=== PATIENT | female | born 2000 | race African-American/Black ===

== ENCOUNTER 2025-05-23 19:00 | Emergency (ER) | payer MEDICAID, SELFPAY ==
--- NOTE | ~2025-05-23 | XR_ITS ---
CLINICAL HISTORY: pain, swelling 3 view right ankle Comparison: None provided Findings: No acute fractures or dislocations. Soft tissue swelling. No ankle effusion. No radiopaque foreign body. IMPRESSION: No acute osseous findings. This document has been electronically signed by: Nacho Jimenez MD on 05/23/2025 20:17:00
[2025-05-23 19:06] VITALS: BP 122/78; PULSE 96; RESP 16; TEMP 36.1; O2SAT 97; BMI 36.7
--- NOTE | 2025-05-23 19:07 | ED.GENADULT ---
HPI - General Adult General Chief complaint: Extremity Injury, Lower Stated complaint: ankle sprain a week ago still bothering/ has boot Time Seen by Provider: 05/23/25 19:13 Source: patient and family Limitations: no limitations History of Present Illness HPI narrative: 24-year-old female presents to the emergency department for right ankle pain and swelling. Patient reports that she sustained an injury on May 09 while jumping on a trampoline. She reports twisting her ankle at that time. She was seen at [facility] where she had an x-ray, diagnosed with a sprain and placed in a walking boot. Patient states that despite using a walking boot and weight-bearing as tolerated, she continues to have pain. She has not taken any medication today for this. She has been ambulating on it while using the walking boot. Patient states that when she removes the, symptoms are worsened. She denies any repeat injury. She has not had any follow up. Related Data Allergies Allergy/AdvReac Type Severity Reaction Status Date / Time amoxicillin Allergy Vomiting Verified 05/23/25 19:08 Review of Systems Review of Systems: Yes all other systems are reviewed and are negative Musculoskeletal: Musculoskeletal: Reports abnormal gait, Denies deformity and Denies stiffness Neurologic: Reports abnormal gait PMFSH Social History Social History Advance Directives: No Advance Directives Information Provided: No Do you have a plan to hurt others: No Plan Physical Exam ED Vital Signs: Vital Signs - 24 hr 05/23/25 19:06 Temperature 97.0 F Pulse Rate 96 Respiratory Rate 16 Blood Pressure 122/78 Pulse Oximetry 97 Oxygen Delivery Method Room Air BMI result Body Mass Index 36.7 Const General: cooperative, alert and awake Extrem Other: Soft tissue swelling surrounds the right lateral malleolus. There is mild diffuse tenderness in this region. No proximal tibial tenderness. DP pulses are +1 and equal bilaterally. Capillary refills less than 2 seconds. No 5th metatarsal tenderness Course Course Course Narrative: Preliminary x-ray findings do not reveal any acute fracture. Patient has for walking boot with her that she will continue. She confirms that she has anti-inflammatory medication at home. Patient is requesting a work no. She expresses understanding of all discharge instructions and has no further questions at this time. A new orthopedic referral per the request of the patient has been provided. Medical Decision Making Medical Decision Making MDM Narrative: 24-year-old female with right ankle sprain, continued pain and swelling despite conservative treatment. Patient agreeable to repeat x-ray. In addition I have reviewed the records from [facility], confirms that the patient sustained an injury on May 09, was seen in the emergency department at that time on May 12 where x-ray was negative for any acute process. Patient was provided with a orthopedic referral. Patient states she did not review her discharge paperwork and states that she did not make contact with the orthopedic referral. Differential Diagnosis Differential Diagnoses: The differential diagnosis associated with the presentation includes Fracture Dislocation Sprain Contusion Independent Interpretation I performed an independent interpretation of an: Plain X-Ray (No fracture) Prescription Management I considered prescription management with: Pain Medication Discharge Plan Discharge Clinical Impression: Ankle sprain and strain Patient Disposition: Home, Self-Care Instructions: Ankle Sprain (ED) Additional Instructions: Continue to rest, ice, elevate. Walking boot for comfort. Weightbear as tolerated. Continue Tylenol or ibuprofen for pain. Follow up with orthopedic referral. Call tomorrow to schedule follow up appointment. Follow-up with your primary care provider. Call this week to schedule a follow-up appointment. Return to the emergency department if you have any worsening of symptoms, or any concerns. Get well soon! Referrals: Velia Olvera MD [Physician, Hand Surgery] Referral Note: right ankle sprain, continued pain, in walking boot Stand Alone Forms: Work/School Release Print Language: Romansh
[2025-05-23 19:44] VITALS: BP 122/78; PULSE 96; RESP 16; TEMP 36.1; O2SAT 97
== END 2025-05-23 19:45 | disposition home or self-care (01) ==
PROVIDERS: Emergency Provider Emergency Medicine
DX: S93.401A Sprain of unspecified ligament of right ankle, initial encounter (principal); M25.571 Pain in right ankle and joints of right foot; X58.XXXA Exposure to other specified factors, initial encounter; Y93.9 Activity, unspecified; Y92.9 Unspecified place or not applicable; Y99.8 Other external cause status
CPT/HCPCS: 73610; 99282; 99283

== ENCOUNTER → 2025-05-23 19:13 | Outpatient (BNV) | payer SELFPAY | PROVIDERS: Emergency Provider Emergency Medicine; Visit Provider Radiology Diagnostic Radiology | DX: M25.571 Pain in right ankle and joints of right foot (principal); R22.41 Localized swelling, mass and lump, right lower limb | CPT/HCPCS: 73610 ==

== ENCOUNTER 2025-06-23 13:11 | Outpatient (AMB) | payer OTHER, SELFPAY ==
[2025-06-23 13:13] VITALS: BMI 36.7
--- NOTE | 2025-06-23 13:13 | A.OFFVIS_ITS ---
Vital Signs 06/23/25 13:13 Height 5 ft 1 in Weight 194 lb BMI 36.7 Intake Visit Reasons: FC - RT ankle sprain DOI: 05/09/25 Intake Note: Reymundo is a 24 year old female who presents today for an ER follow up of right ankle sprain, DOI: 05/09/25. Patient initially was seen at [facility] after she twisted her right ankle while jumping on a trampoline, she was di agnosed with a sprain and placed in a walking boot. She presented to [facility] ER due to her pain and was referred to orthopedics. Patient reports ongoing constant pain and swelling. Finds little relief with Tylenol. No numbness or tingling. Patient has been out of work since her injury. Allergies amoxicillin Allergy (Verified 06/23/25 13:17) Vomiting Medication List - Last Reconciled 06/23/25 by Melani Pace PA-C No Known Home Meds HPI HPI FC - RT ankle sprain DOI: 05/09/25: Details: 24-year-old female presents to the office an injury she sustained to the right ankle 05/09/2025. She states she was at a trampoline park when she twisted the ankle. She was seen in the emergency department at [facility] where x-rays were obtained and she was given a tall walking boot and referred for an orthopedic follow up. The patient states since the injury she has less pain but she does notice some limited motion and stiffness. She also experiences intermittent swelling especially toward the end of the day. [facility] Social History (Updated 06/23/25 @ 13:17 by MAXIME Ceballos) Patient Tobacco Use Status: Never used Tobacco Current occupational status: employed Current occupation: Pharmacy Review of Systems Const All systems reviewed & are unremarkable except as noted in HPI and below Physical Exam Vital Signs: BMI result Body Mass Index 36.7 Const General: cooperative and no acute distress Orientation/consciousness: patient oriented x3 Resp Effort & Inspection: normal respiratory effort and able to speak in complete sentences Cardio Peripheral pulses: Peripheral pulses 2+ throughout Neuro General: patient oriented x3 Extrem Other: Right ankle is normal to inspection with some mild soft tissue swell the lateral malleolus with tenderness to palpation from the posterior aspect of the ankle along the peroneal tendon. She has limited motion with plantar and dorsiflexion along with weakness compared to contralateral side. Neurovascularly intact. Results Reviewed Results Reviewed: X-rays of the right ankle obtained in the emergency department on 05/23/2025 are negative for any acute abnormalities. Ankle mortise intact. Assessment & Plan Assessment & Plan (1) Right ankle sprain: Code(s): S93.401A - Sprain of unspecified ligament of right ankle, initial encounter Category: Medical Plan: She was fit for a lace-up ankle brace which she will transition to. She will wean out of the boot. An order for physical therapy has been placed for range of motion, gentle strengthening proprioceptive training. She will gradually increase activities as tolerated. I did recommend anti-inflammatories icing and elevating for management of swelling. She will remain out of work for another 2 weeks and then she can return without restrictions. Orders: Orders PT Evaluation and Treatment Today S93.401A - Sprain of unspecified ligament of right ankle, initial encounter Coding Level of Care Code New Pt Level 3 (96261) Complex EM visit Add On G2211 Diagnoses Right ankle sprain S93.401A
--- OUTSIDE RECORDS SUMMARY | 2025-06-23 13:43 | XMS_ITS | Encounter Summary ---
Author Organization [facility] Address [address] [place] [address] Phone Care Team Providers Care Lasting Machine Operator Bed Name Role Phone Key Valentine MD Primary Care Provider Encounter Details Date Type Department Care Team (Late st Contact Info) Description 05/03/2015 Documentation [facility] [address] [place] [address] Family Medicine, Physician [address] [place], [place] [id number] Social History Tobacco Use Types Packs/Day Years Used Date Smoking Tobacco: Never Assessed Comments Unknown Sex and Gender Information Value Date Recorded Sex Assigned at Not on file Legal Sex Female 5:14 PM EDT Gender Identity Not on file Sexual Orientation Not on file documented as of this encounter Plan of Treatment Not on file documented as of this encounter Visit Diagnoses Not on filedocumented in this encounter Care Teams Lasting Machine Operator Bed Relationship Specialty Start Date End Date Key Valentine MD [address] [place] [id number] PCP - General 06/21/17 12/26/22 documented as of this encounter
--- OUTSIDE RECORDS SUMMARY | 2025-06-23 13:43 | XMS_ITS | Clinical Summary ---
Author Organization [facility] Address [address] [place] [address] Phone Care Team Providers Care Fashion Buying Internship Name Role Phone Physician, No Pcp Primary Care Provider Unavaila ble Allergies Active Allergy Reactions Criticality Noted Date Comments Amoxicillin GI intolerance 05/12/2025 Encounters Date Type Department Care Team Description 05/12/2025 2:04 PM EDT - 05/12/2025 3:20 PM EDT Emergency [facility] Emergency [address] [place] [address] Sprain of right ankle, initial encounter (Primary Dx) Discharge Disposition: Home or Self Care from Last 3 Months Medical History Medical History Date Comments Known health problems: none Social History Tobacco Use Types Packs/Day Years Used Date Smoking Tobacco: Never Assessed Comments Unknown Sex and Gender Information Value Date Recorded Sex Assigned at Not on file Legal Sex Female 9:32 AM EST Gender Identity Not on file Sexual Orientation Not on file Obstetrics History Last Filed Vital Signs Vital Sign Reading Time Taken Comments Blood Pressure 120/79 05/12/2025 1:41 PM EDT Pulse 107 05/12/2025 1:41 PM EDT Temperature 37.5 C (99.5 F) 05/12/2025 1:41 PM EDT Respiratory Rate 18 05/12/2025 1:41 PM EDT Oxygen Saturation 95% 05/12/2025 1:41 PM EDT Inhaled Oxygen Concentration - - Weight 88 kg (194 lb) 05/12/2025 1:41 PM EDT Height 154.9 cm (5' 1 ) 05/12/2025 1:41 PM EDT Body Mass Index 36.66 05/12/2025 1:41 PM EDT Plan of Treatment Upcoming Encounters Date Type Department Care Team (Late st Contact Info) Description 07/08/2025 3:00 PM EDT Consult Orthopedic Surgery - [place] [address] [facility] [address] [place] [id number] Cassius Allen, DPM [address] [facility] [address] [place] [address] Health Maintenance Due Date Last Done Comments Diabetes: Annual GFR (Glomerular Filtration Rate) 1998 Diabetes: Annual Foot Exam 2008 Diabetes: Annual Retina Eye Exam 2008 Cervical Cancer Screening: Pap Smear 2019 DTaP,Tdap,and Td Vaccines (7 - Td or Tdap) 04/20/2021 04/20/2011, 01/13/2003, 08/21/2000, Additional history exists COVID-19 Vaccine () 07/12/2024 03/26/2022, 11/29/2021 Depression Screening 11/11/2024 Cholesterol Screening (Lipid Panel) 05/13/2025 Diabetes: Annual Urine Albumin-Creatinine Ratio (uACR) 05/13/2025 Diabetes: Blood Sugar Control Test (HGBA1C) 05/13/2025 HIV Screening 05/13/2025 Hepatitis C Screening 05/13/2025 Social Influencers of Health Screening 05/13/2025 Influenza Vaccine (#1) 2025 09/18/2007 Hepatitis B Vaccines Completed 07/12/1999, 01/10/1999, 1998 HIB Vaccines Completed 08/21/2000, 11/1998, 03/17/1999, Additional history exists Pneumococcal Vaccine: Pediatrics (0 to 5 Years) and At-Risk Patients (6 to 49 Years) Completed 01/01/2001, 10/02/2000, 08/21/2000 IPV Vaccines Completed 01/13/2003, 08/11, 03/17/1999, Additional history exists MMR Vaccines Completed 09/04/2006, 03/2003, 10/16/1999 Varicella Vaccines Completed 11/24/2008, 11/29/2000 HPV Vaccines Completed 02/03/2010, 09/12, 08/03/2009 Hepatitis A Vaccines Completed 09/27/2016, 04/20/20 11 Meningococcal ACWY Vaccine Completed 09/27/2016, Meningococcal B Vaccine Completed 08/25/2019, 02/18 RSV Immunization Patients Under 20 months Aged Out No longer eligible based on patient's age to complete this topic Procedures Procedure Name Priority Date/Time Associated Diagnosis Comments XR ANKLE 3+ VIEWS RIGHT STAT 05/12/2025 1:57 PM EDT from Last 3 Months Results * XR Ankle 3+ Views Right (05/12/2025 1:57 PM EDT) Anatomical Region Laterality Modality Lower Extremities, Ankle Right Radiogr aphic Imaging 05/12/2025 2:36 PM EDT Impressions 05/12/2025 2:36 PM EDT FINDINGS/IMPRESSION: Three views of the ankle demonstrate no acute fracture. Normal alignment. Soft tissue swelling. -------- FINAL REPORT -------- Dictated By: Kady Moreno Dictated Date: 05/12/2025 14:36 ET Assigned Physician: Kady Moreno Reviewed and Electronically Signed By: Kady Moreno Signed Date: 05/12/2025 14:36 ET Workstation ID: [id number] Transcribed By: Self Edit Transcribed Date: 05/12/2025 14:36 ET Narrative 05/12/2025 2:36 PM EDT XR ANKLE 3+ VIEWS RIGHT INDICATION: pain TECHNIQUE: XR ANKLE 3+ VIEWS RIGHT COMPARISON: No priors available. Procedure Note Kady Moreno MD - 05/12/2025 XR ANKLE 3+ VIEWS RIGHT INDICATION: pain TECHNIQUE: XR ANKLE 3+ VIEWS RIGHT COMPARISON: No priors available. IMPRESSION: FINDINGS/IMPRESSION: Three views of the ankle demonstrate no acutefracture. Normal alignment. Soft tissue swelling. -------- FINAL REPORT -------- Dictated By: Kady Moreno Dictated Date: 05/12/2025 14:36 ET Assigned Physician: Kady Moreno Reviewed and Electronically Signed By: Kady Moreno Signed Date: 05/12/2025 14:36 ET Workstation ID: [id number] Transcribed By: Self Edit Transcribed Date: 05/12/2025 14:36 ET us Ambrosio Alegria MD IMG XR PROCEDURES Final Result from Last 3 Months Insurance MEDICAID - [place] Care Teams Fashion Buying Internship Relationship Specialty Start Date End Date Physician, No Pcp PCP - General 05/12/25
== END 2025-06-23 13:52 | disposition home or self-care (01) ==
LOC: HO.HOS 13:11
PROVIDERS: Visit Provider Physician Assistant
DX: S93.401A Sprain of unspecified ligament of right ankle, initial encounter (principal)
CPT/HCPCS: 99203

== ENCOUNTER → 2025-06-23 13:11 | Outpatient (BNVA) | payer OTHER, SELFPAY | PROVIDERS: Visit Provider Physician Assistant | DX: M25.571 Pain in right ankle and joints of right foot (principal); S93.401A Sprain of unspecified ligament of right ankle, initial encounter | CPT/HCPCS: 99202 ==

== ENCOUNTER 2025-07-29 23:00 | Emergency (ER) | payer OTHER, SELFPAY ==
--- NOTE | ~2025-07-29 | CT_ITS ---
CLINICAL HISTORY: RUQ pain CT abdomen and pelvis with contrast Comparison: None provided Findings: The lung bases are clear. The gallbladder and solid organs are within normal limits. No renal stones. No bowel obstruction, pneumoperitoneum, or pneumatosis. Pelvic contents unremarkable. Normal appendix. No acute fracture. IMPRESSION: No acute findings. This document has been electronically signed by: Malinda Sykes MD on 07/30/2025 06:17:51
[2025-07-29 23:03] VITALS: BP 123/64; PULSE 64; RESP 16; TEMP 37.1; O2SAT 96; BMI 36.6
[2025-07-29 23:22] LABS: Hematocrit 40.9 % (37.0-47.0); Hemoglobin 14.1 g/dl (12.0-16.0); Imm Gran Abs Auto 0.06 X10*3/uL (0.00-0.03); Imm Gran Pct Auto 0.4 % (0.0-0.4); MANUAL DIFF FLAG SCAN; Mean Corpuscular HGB Conc 34.5 g/dl (31.0-35.0); Mean Corpuscular Hemoglobin 28.1 pg (27.0-33.0); Mean Corpuscular Volume 81.6 fL (80.0-98.0); NRBC Abs Auto 0.000 X10*3/uL (0.0-0.012); NRBC Pct Auto 0.0 /100WBC (0.0-0.2); Platelet Count 506 X10*3/uL (160-400); Red Blood Count 5.01 X10*6/uL (4.20-5.50); SCAN SMEAR FLAG 1; White Blood Count 14.9 X10*3/uL (4.8-10.8)
--- OUTSIDE RECORDS SUMMARY | 2025-07-29 23:25 | XMS_ITS | Clinical Summary ---
Author Organization [facility] Address [address] [place] [address] Phone Care Team Providers Care Broomcorn Thresher Name Role Phone Unavailable Primary Care Provider Unavailabl e Allergies No known active allergies Medications norgestimate-eth inyl estradiol 0.25-35 MG-MCG per tabletIndication s:Polycystic ovarian syndrome Take 1 tablet by mouth daily. 84 tablet 3 12/11/2017 Active Active Problems Problem Noted Date Diagnosed Date Refused influenza vaccine 01/08/2019 Overview (09/22/2019): Declined 01/08/19 Declined 09/29 Assessment & Plan (01/08/2019 4:11 PM EST): Discussed & info given on how deadly 2016 flu season was. Family and /or patient still refused vaccine today Family will return for nurse visit if wishing vaccine Polycystic ovarian syndrome 12/12/2017 Assessment & Plan (12/26/2018 5:58 PM EST): Mom wants pt to see endo so she no longer has to take her pills. I explained that the OC pills are the treatment that endocrine recommends. They also recommended Metformin. Mom reports that Sheinaly is not good at taking her medication. Mom did not seem aware that Sheinaly has been to endocrine. I discussed scheduling next PE with Dr Valentine for [facility] to discuss transfer to adult providers. Talked about import of learning to take medication regularly - she can do it when she brushes her teeth. Assessment & Plan (12/12/2017 10:04 AM EST): Continue OCPs. Mom would like to have her start seeing a sea kayaking guide - she will arrange. BMI 40.0-44.9, adult 12/12/2017 Assessment & Plan (12/12/2017 10:05 AM EST): Discussed healthy eating and exercising. Suggested walking, dancing to 10 songs. Pt interested in doing Viral videos - encouraged her to do so. Acanthosis nigricans, acquired 12/12/2017 Assessment & Plan (12/12/2017 10:07 AM EST): Discussed with pt. Am concerned about her weight and risk for diabetes. Will refer to Adult Endocrinology to follow as she gets older. Resolved Problems Problem Noted Date Diagnosed Date Resolved Date Breast lump on right side at 6 o'clock position 12/26/2018 02/18/2019 Overview (12/26/2018): Positive family history of breast CA in aunt on dads side and great aunt on moms side - both in their 40's. Assessment & Plan (12/26/2018 6:02 PM EST): Positive family history of breast CA in aunt on dads side and great aunt on moms side - both in their 40's. Right breat with a firm small mass at about 6 oclock. I gave mom numbers for branch specialist to call for appt for ongoing care. On review of chart mom told PP that she would make appt with branch specialist a year ago. I also recommended that Sheinaly schedule PE with DR Valentine for [facility] as she is due and needs to talk about transfering to adult providers/specialists. Immunizations Immunization Administration Dates Next Due DTP 03/17/1999,01/10/1999 DTaP 5 01/13/2003,08/21/2000,07/12/1999 HPV, Quadrivalent 02/03/2010,09/30/2009,08/03/20 09 Hep A, ped/adol 09/27/2016,04/20/2011 Hep B, ped/adol 07/12/1999,01/10/1999,1998 Hib (PRP-T) 08/21/2000, 9,03/17/1999,03/02/1 999 IPV 01/13/2003, 0,03/17/1999, 999 Influenza, injectable, trivalent 09/18/2007 MMR 09/04/2006,01/13/2003,10/16/1999 Meningococcal B Trumenba 08/25/2019,02/18/2019 Meningococcal Conj (Menactra) MCV4P 09/27/2016,0 04/20/2011 Pneumococcal Conjugate 01/01/2001,10/02/2000,09/2000 Tdap 04/20/2011 Varicella 11/24/2008,11/29/2000 Family History Medical History Relation Name Comments Asthma Father yamileth Hypertension Father yamileth Kidney failure Father yamileth Sleep apnea Father yamileth Arthritis Maternal Grandfather Emphysema Maternal Grandfather Depression Maternal Grandmother Diabetes Maternal Grandmother Migraines Maternal Grandmother Hearing loss Mother Sujeily Asthma Sister 1 Asthma Sister 2 Relation Name Status Comments Father yamileth Alive Father: Hyperte nsion asthma Maternal Grandfather Alive Maternal Grandmother Alive Materna l grandmother: Depression, Hearing loss, diabetes, migraines Mother Sujeily Alive Mother: Hearing loss Other 1 grandfather: As thma Other 2 No family histo ry of *Heart Disease, No family history of *Sudden /NH under 55, No family history of *Thrombophilia, No family history of *Dental caries, No family history of *CVA/Stroke Paternal Grandmother Alive Paterna l aunt: Hypertension Sister 1 Alive Sister: Asthma, Asthma Sister 2 Alive Sister: Asthma, Asthma Social History Tobacco Use Types Packs/Day Years Used Date Smoking Tobacco: Never Smokeless Tobacco: Never Tobacco Cessation:Counseling Given: Yes Comments:Never smoker Alcohol Use Standard Drinks/Week Comments Never 0 (1 standard drink = 0.6 oz pur e alcohol) Hunger/Food Answer Date Recorded No 08/06/2020 Stable Housing Answer Date Recorded Yes 08/06/2020 Transportation Concerns Answer Date Rec orded No 08/06/2020 Hazards in Home Answer Date Recorded No 09/24/2020 Financing Utilities Answer Date Recorde d No 09/24/2020 Safety at Home Answer Date Recorded No 09/24/2020 Outside Support Answer Date Recorded No 09/24/2020 Understanding Health Concerns Answer Da te Recorded No 09/24/2020 Financing Health Concerns Answer Date R ecorded No 09/24/2020 Missing School or Work Answer Date Logan rded No 09/24/2020 Comments No Sex and Gender Information Value Date Recorded Sex Assigned at Not on file Legal Sex Female 5:14 PM EDT Gender Identity Not on file Sexual Orientation Not on file Last Filed Vital Signs Vital Sign Reading Time Taken Comments Blood Pressure 95/63 02/18/2019 1:03 PM EDT Pulse 107 02/18/2019 1:03 PM EDT Temperature 36.7 C (98 F) 01/08/2019 3:54 PM EST Respiratory Rate - - Oxygen Saturation - - Inhaled Oxygen Concentration - - Weight 101 kg (222 lb 6.4 oz) 02/18/2019 1:03 PM EDT Height 154.9 cm (5' 1 ) 02/18/2019 1:03 PM EDT Body Mass Index 42.02 02/18/2019 1:03 PM EDT Plan of Treatment Health Maintenance Due Date Last Done Comments DTaP,Tdap,and Td Vaccines (7 - Td or Tdap) 04/20/2021 04/20/2011, 01/13/2003, 08/21/2000, Additional history exists Influenza Vaccines (#1) 2025 09/18/2007 COVID-19 Vaccine (2023-2 5 season) 2025 Hepatitis B Vaccines Completed 07/12/1999, 01/10/1999, 1998 HIB Vaccines Completed 08/21/2000, 11/1998, 03/17/1999, Additional history exists Pneumococcal Vaccine Completed 01/01/2001, 10/02/2000, 08/21/2000 IPV Vaccines Completed 01/13/2003, 08/11, 03/17/1999, Additional history exists MMR Vaccines Completed 09/04/2006, 03/2003, 10/16/1999 Varicella Vaccines Completed 11/24/2008, 11/29/2000 HPV Vaccines Completed 02/03/2010, 09/12, 08/03/2009 Hepatitis A Vaccines Completed 09/27/2016, 04/20/20 11 Meningococcal Vaccine Completed 09/27/2016, 011 Men B Vaccine Completed 08/25/2019, 02/18/2019 Procedures * Due to [place] state law, this organization might not be sharing sensitive test results. Procedure Name Priority Date/Time Associated Diagnosis Comments CHLAMYDIA AND GONORRHEA, AMPLIFIED Routine 09/28/2016 1:49 PM EST from Last 3 Months or Most Recently Relevant to Health Maintenance Results * Due to [place] state law, this organization might not be sharing sensitive test results. * Chlamydia and Gonorrhoea, Amplified (09/28/2016 1:49 PM EST) URINE CHLAMYDIA AMP PROBE NEGATIVE [facility] Comment: No Chlamydia Trachomatis RNA detected in this patient's sample (REFERENCE RANGE/NORMAL VALUE: NOT DETECTED) URINE GC AMP PROBE NEGATIVE [facility] Comment: No Neisseria Gonorrhoeae RNA detected in this patient's sample (REFERENCE RANGE/NORMAL VALUE: NOT DETECTED) NOTE: This test uses bean sprout laborer-mediated amplification method to detect rRNA from C.Trachomatis and N.Gonorrhoeae. A negative result does not preclude infection. In the case of a negative urine result, testing of an endocervical(female) or urethral(male) specimen is recommended if there is high clinical suspicion of infection. The performance characteristics of this test have not been evaluated in children. The Aptima Combo2 assay is not intended for the evaluation of suspected sexual abuse or for other medico-legal indications. The ordering provider should assess if the patient had consensual sex without risk of sexual abuse. Consult the [facility] if needed. Contact phone number . Therapeutic failure or success cannot be determined with the Aptima Combo2 assay since nucleic acid may persist following appropriate antimicrobial therapy. The Centers for Disease Control and Prevention (CDC) recommends confirmatory retesting using culture or a different nucleic acid amplification test when positive results occur, if indicated. Testing performed or reported by [facility], a Service of [facility], [facility]anna [facility] [place] [address] [place] [id number] Jevon Nj MD, PhD, Constitutional Law Professor 09/28/2016 1:49 PM EST Narrative [facility] - 09/28/2016 1:49 PM EST URINE CHLAMYDIA GC AMP PROBE us Mason Kelley MD LAB MICROBIOLOGY - GENERAL ORDER ALISHA Final Result [facility] [address] [place] [address], from Last 3 Months or Most Recently Relevant to Health Maintenance Insurance [facility] NON PCC
--- OUTSIDE RECORDS SUMMARY | 2025-07-29 23:25 | XMS_ITS | Encounter Summary ---
Author Organization [facility] Address [address] [place] [address] Phone Care Team Providers Care Undercutter Operator Name Role Phone Key Valentine MD Primary Care Provider Encounter Details Date Type Department Care Team (Late st Contact Info) Description 07/10/2013 Documentation [facility] [place] Family Medicine [address] [place] [address] Family Medicine, Physician [address] [place], [place] [phone] Social History Tobacco Use Types Packs/Day Years [...] on filedocumented in this encounter Care Teams Undercutter Operator Relationship Specialty Start Date End Date Key Valentine MD [address] [place] [id number] PCP - General 06/21/17 12/26/22 documented as of this encounter
--- OUTSIDE RECORDS SUMMARY | 2025-07-29 23:25 | XMS_ITS | Encounter Summary ---
Author Organization [facility] Address [address] [place] [address] Phone Care Team Providers Care Tool Grinder Set Up Operator Gear Name Role Phone Key Valentine MD Primary Care Provider Encounter Details Date Type Department Care Team (Late st Contact Info) Description 08/25/2014 Documentation [facility] Family Medicine [address] [place] [address] Family Medicine, Physician [address] [place], [place] [phone] Social History Tobacco Use Types Packs/Day Years [...] on filedocumented in this encounter Care Teams Tool Grinder Set Up Operator Gear Relationship Specialty Start Date End Date Key Valentine MD [address] [place] [id number] PCP - General 06/21/17 12/26/22 documented as of this encounter
--- OUTSIDE RECORDS SUMMARY | 2025-07-29 23:25 | XMS_ITS | Encounter Summary ---
Author Organization [facility] Address [address] [place] [address] Phone Care Team Providers Care School Bus Dispatcher Name Role Phone Key Valentine MD Primary Care Provider Encounter Details Date Type Department Care Team (Late st Contact Info) Description 06/27/2017 Conversion Encounter [facility] [address] [place] [address] Social History Tobacco Use Types Packs/Day Years Used Date Smoking Tobacco: Never Comments:Never smoker Comments Unknown Sex and Gender Information Value Date Recorded Sex Assigned at Not on file Legal Sex Female 5:14 PM EDT Gender Identity Not on file Sexual Orientation Not on file documented as of this encounter Plan of Treatment Not on file documented as of this encounter Visit Diagnoses Not on filedocumented in this encounter Care Teams School Bus Dispatcher Relationship Specialty Start Date End Date Key Valentine MD [address] [place] [address] PCP - General 06/21/17 12/26/22 documented as of this encounter
--- OUTSIDE RECORDS SUMMARY | 2025-07-29 23:25 | XMS_ITS | Encounter Summary ---
Author Organization [facility] Address [address] [place] [address] Phone Care Team Providers Care Police Magistrate Name Role Phone Key Valentine MD Primary Care Provider Encounter Details Date Type Department Care Team (Late st Contact Info) Description 07/02/2013 Documentation [facility] [place] [address] [place] [address] Family Medicine, Physician [address] [place], [place] [phone] Social History Tobacco Use Types Packs/Day Years [...] on filedocumented in this encounter Care Teams Police Magistrate Relationship Specialty Start Date End Date Key Valentine MD [address] [place] [phone] PCP - General 06/21/17 12/26/22 documented as of this encounter
--- OUTSIDE RECORDS SUMMARY | 2025-07-29 23:25 | XMS_ITS | Encounter Summary ---
Author Organization [facility] Address [address] [place] [address] Phone Care Team Providers Care Inventory And Pricing Associate Name Role Phone Key Valentine MD Primary Care Provider Encounter Details Date Type Department Care Team (Late st Contact Info) Description 05/03/2015 Documentation [facility] [place] Family Medicine [address] [place] [address] Family Medicine, Physician [address] [place], [place] [phone] Social History Tobacco Use Types Packs/Day Years [...] on filedocumented in this encounter Care Teams Inventory And Pricing Associate Relationship Specialty Start Date End Date Key Valentine MD [address] [place] [phone] PCP - General 06/21/17 12/26/22 documented as of this encounter
--- OUTSIDE RECORDS SUMMARY | 2025-07-29 23:25 | XMS_ITS | Encounter Summary ---
Author Organization [facility] Address [address] [place] [address] Phone Care Team Providers Care Jitney Driver Name Role Phone Key Valentine MD Primary Care Provider Encounter Details Date Type Department Care Team (Late st Contact Info) Description 09/28/2016 Documentation [facility] [place] [address] [place] [address] Family Medicine, Physician [address] [place], [place] [phone] Social History Tobacco Use Types Packs/Day Years [...] on filedocumented in this encounter Care Teams Jitney Driver Relationship Specialty Start Date End Date Key Valentine MD [address] [place] [phone] PCP - General 06/21/17 12/26/22 documented as of this encounter
--- OUTSIDE RECORDS SUMMARY | 2025-07-29 23:25 | XMS_ITS | Encounter Summary ---
Author Organization [facility] Address [address] [place] [address] Phone Care Team Providers Care Dtp Operator Name Role Phone Key Valentine MD Primary Care Provider Encounter Details Date Type Department Care Team (Late st Contact Info) Description 07/07/2013 Documentation [facility] [place] Family Medicine [address] [place] [address] Family Medicine, Physician [address] [place], [place] [phone] Social History Tobacco Use Types Packs/Day Years [...] on filedocumented in this encounter Care Teams Dtp Operator Relationship Specialty Start Date End Date Key Valentine MD [address] [place] [id number] PCP - General 06/21/17 12/26/22 documented as of this encounter
--- OUTSIDE RECORDS SUMMARY | 2025-07-29 23:25 | XMS_ITS | Encounter Summary ---
Author Organization [facility] Address [address] [place] [address] Phone Care Team Providers Care Center Medical Specialist Name Role Phone Key Valentine MD Primary Care Provider Encounter Details Date Type Department Care Team (Late st Contact Info) Description 09/27/2016 Documentation [facility] [place] [address] [place] [address] Family Medicine, Physician [address] [place], [place] [phone] Social History Tobacco Use Types Packs/Day Years [...] on filedocumented in this encounter Care Teams Center Medical Specialist Relationship Specialty Start Date End Date Key Valentine MD [address] [place] [phone] PCP - General 06/21/17 12/26/22 documented as of this encounter
--- OUTSIDE RECORDS SUMMARY | 2025-07-29 23:25 | XMS_ITS | Encounter Summary ---
Author Organization [facility] Address [address] [place] [address] Phone Care Team Providers Care Community Arts Centre Manager Name Role Phone Key Valentine MD Primary Care Provider Encounter Details Date Type Department Care Team (Late st Contact Info) Description 07/08/2013 Documentation [facility] [place] Family Medicine [address] [place] [address] Family Medicine, Physician [address] [place], [place] [phone] Social History Tobacco Use Types Packs/Day Years [...] on filedocumented in this encounter Care Teams Community Arts Centre Manager Relationship Specialty Start Date End Date Key Valentine MD [address] [place] [phone] PCP - General 06/21/17 12/26/22 documented as of this encounter
[2025-07-29 23:33] LABS: Appearance Urine Clear; Glucose Urine UA >=1000 mg/dL (Negative); PH 5.5 (5.0-9.0); Specific Gravity - Urine >= 1.030 (1.005-1.025); UMIC TRIGGER UACC YES
[2025-07-29 23:40] LABS: Lymphocytes Absolute Auto 6.8 X10*3/uL (1.2-4.9)
[2025-07-29 23:53] LABS: Albumin Level 4.4 g/dL (3.5-5.0); Alkaline Phosphatase 116 U/L (39-117); Anion Gap 10 (12-20); Aspartate Amino Transferase 29 U/L (5-31); Blood Urea Nitrogen 10 mg/dL (9-16); Calcium 9.3 mg/dL (8.4-10.2); Carbon Dioxide 25 mmol/L (22-29); Chloride 107 mmol/L (96-108); Creatinine Clr Calc Pharmacy 128.1; Estimated Glomerular Filt Rate > 60; Lipase 34 U/L (8-78); Magnesium 1.9 mg/dL (1.6-2.6); Potassium 3.8 mmol/L (3.3-5.1); Sodium 138 mmol/L (135-145); Total Protein 7.8 g/dL (6.5-8.0)
[2025-07-30 00:01] LABS: Alanine Aminotransferase 35 U/L (0-31)
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
[2025-07-30] MEDS: Lidocaine HCl Viscous 2 % 15 ML SOLUTION MUCOUS MEM (01:42)
[2025-07-30] MEDS: Magnesium Hydrox/Alum Hydrox 30 ML ORAL.SUSP PO (01:42)
[2025-07-30 02:40] VITALS: BP 108/70; PULSE 89; RESP 18; O2SAT 98
[2025-07-30 03:11] LABS: UPreg QC Valid YES
[2025-07-30] MEDS: iohexoL 350 MG/ML 100 ML INFUS..BTL 85 ML IV (04:32)
[2025-07-30] MEDS: Lidocaine 4 % Patch ADH..PATCH 1 PATCH TRANSDERMA (05:48)
[2025-07-30 06:00] VITALS: BP 112/63; PULSE 84; RESP 18; TEMP 36.9; O2SAT 96
--- NOTE | 2025-07-30 06:03 | PC.NURSE ---
20g IV LAC, pt medicated per MAR, still endorsing pain to R ribs, worse when taking a deep breath or moving. MD [place]
[2025-07-30 06:59] VITALS: BP 112/63; PULSE 84; RESP 18; TEMP 36.9; O2SAT 96
== END 2025-07-30 07:29 | disposition home or self-care (01) ==
PROVIDERS: Emergency Provider Student in an Organized Health Care Education/Training Program
DX: S29.8XXA Other specified injuries of thorax, initial encounter (principal); R10.9 Unspecified abdominal pain; R10.11 Right upper quadrant pain; V49.9XXA Car occupant (driver) (passenger) injured in unspecified traffic accident, initial encounter; Y93.9 Activity, unspecified; Y92.89 Other specified places as the place of occurrence of the external cause; Y99.9 Unspecified external cause status
CPT/HCPCS: 36415; 74177; 80053; 81001; 81025; 82248; 83690; 83735; 85025; 96361; 96374; 96375; 99284; J1885; J2270; Q9967

== ENCOUNTER → 2025-07-30 02:30 | Outpatient (BNV) | payer OTHER, SELFPAY | PROVIDERS: Emergency Provider Student in an Organized Health Care Education/Training Program; Visit Provider Radiology Diagnostic Radiology | DX: R10.11 Right upper quadrant pain (principal) | CPT/HCPCS: 74177 ==